=== PATIENT | female | born 1985 | race Caucasian/White ===

== ENCOUNTER → 2017-09-08 | Outpatient (CLI) | payer OTHER ==
[~2017-09-08] MED LIST: AZIT500T3 PO
--- NOTE | 2017-09-08 18:33 | DIAGNOSTIC IMAGING REPORT ---
L LOWER EXT JOINT WITHOUT CLINICAL HISTORY: L KNEE PAIN/SWELLING,GAIT DISTURBANCE pain. Edema. TECHNIQUE: MRI multi axial acquisition COMPARISON STUDY: None FINDINGS: Prior ACL graft repair. Current evaluation demonstrates a full-thickness tear of that structure and is mid aspect. Posterior cruciate ligament is intact. Signal characteristics the osseous structures indicate mild degenerative subchondral edematous change of the medial and lateral compartments. There is moderate degenerative change of the patellofemoral joint. There is no significant/minimal chondromalacia patella. Medial and lateral patellar retinaculum is intact. Medial and lateral collateral ligaments structures are in general unremarkable. There is a moderate sprain of the medial collateral ligament. There may be a very small partial tear. Truncation of the mid medial meniscus as well as mid lateral meniscus. Components of this potentially are on a postoperative basis. There is a focal tear of the apex of the mid lateral meniscus. There is significant irregularity of the mid apex medial meniscus with a horizontal tear of the mid to posterior horn. IMPRESSION: 1. Complete tear of the anterior cruciate ligament graft. 2. Small partial tear medial collateral ligament. 3. Truncation apices of the mid menisci medially and laterally possibly postoperative. 4. Horizontal tear mid to posterior aspect medial meniscus. 5. Focal tear apex mid lateral meniscus. The above report was generated using voice recognition software. It may contain grammatical, syntax or spelling errors. Electronically signed by: Hugh Mcdonald M.D. 09/08/2017 6:31 PM Dictated Date/Time: 09/08/2017 6:26 PM
== END | disposition home or self-care (01) ==
LOC: C.MRI 17:29
PROVIDERS: ATTEND Physician Assistant
DX: S83.512A Sprain of anterior cruciate ligament of left knee, initial encounter (principal); S83.412A Sprain of medial collateral ligament of left knee, initial encounter; S83.242A Other tear of medial meniscus, current injury, left knee, initial encounter; S83.282A Other tear of lateral meniscus, current injury, left knee, initial encounter; X58.XXXA Exposure to other specified factors, initial encounter; T84.89XA Other specified complication of internal orthopedic prosthetic devices, implants and grafts, initial encounter

== ENCOUNTER → 2017-10-14 | Day surgery (SDC) | payer OTHER ==
[2017-09-24 13:26] VITALS: Ht 162.6 cm; Wt 77.3 kg
[~2017-10-14] VITALS: Ht 162.6 cm; Wt 77.3 kg
[~2017-10-14] MED LIST changes: +ACETAMINOPHEN 1000 MG/100 ML IV IV ONE; +ATROPINE SULFATE 0.1 MG/ML 5ML SYR IV PRN; -AZIT500T3 PO; +BUPIVACAINE 0.25% 30 ML VIAL ONE; +CALC600T9 PO; +CEFAZOLIN 1000MG IV PUSH 7.5 ML IV SCH; +CEFAZOLIN SOD 1 GM VIAL ONE; +CEFAZOLIN SOD 1000MG/7.5 ML IV PUSH IV ONE; +DEXAMETHASONE SOD INJ 4 MG/ML VIAL ONE; +EpHEDrine SULFATE INJ 50 MG/ML AMP IV PRN; +EpINEphrine INJ 1MG/ML AMP 1 MG/ML AMP ONE; +FENTANYL CITRATE INJ 50 MCG/1 ML 2 ML VIAL IV PRN; +FENTANYL CITRATE INJ 50 MCG/1 ML 2 ML VIAL ONE; +FLUMAZENIL 0.1 MG/1 ML 10 ML VIAL IV PRN; +GLYCOPYRROLATE INJ 0.2 MG/ML VIAL ONE; +HYDROmorphone INJ 0.5 MG/0.5 ML SYR ONE; +HYDROmorphone INJ 2 MG/ML SYR/VIAL IV PRN; +KETOROLAC TROMETHAMINE 30 MG/ML VIAL ONE; +LABETALOL HCL IV 5 MG/ML 20ML IV PRN; +LACTATED RINGER'S 1000ML 1,000 ML IV SCH; +LIDOCAINE HCL 2% 2 ML VIAL (20MG/ML) ONE; +MEPERIDINE HCL 25 MG/ML CARP IV PRN; +MIDAZOLAM HCL 1 MG/ML 2ML VIAL ONE; +NALOXONE HCL 0.4 MG/1 ML VIAL/CARP IV PRN; +ONDANSETRON INJ 2 MG/ML 2 ML VIAL IV PRN; +ONDANSETRON INJ 2 MG/ML 2 ML VIAL ONE; +OXYC-57 PO; +OXYCODONE/ACETAMINOPHEN 5-325 TAB PO PRN; +PHENYLEPHRINE 100MCG/ML 5ML SYR IV PRN; +PROPOFOL IV EMULSION 10 MG/ML 20 ML VIAL IV ONE; +ROPIVACAINE 0.5% 5 MG/ML 30 ML VIAL ONE; +SODIUM CHLORIDE 0.9% 1000ML 1,000 ML IV SCH
--- NOTE | 2017-10-14 07:46 | History & Physical Bridge - [place] ---
H&P Re-Evaluation Bridge Note: I have examined the patient, reviewed the History & Physical and in the interval since the performance of the History & Physical I have noted the following changes of clinical significance: No changes noted
--- NOTE | 2017-10-14 09:49 | [facility] Post Operative Brief Note ---
Immediate Operative Summary Operative Date Oct 14, 2017. Pre-Operative Diagnosis Left Knee ACL Rupture and DJD Post-Operative Diagnosis Same + Lateral Meniscus Tear Procedure(s) Performed Left Knee Arthroscopy, Anterior Cruciate Ligament Revision with Bone Patella Bone Autograft, Partial Lateral Meniscectomy + Chondroplasty Surgeon Dr. Engel Ethanol Quality Leader Surgeon(s) Fracisco Oliver PA-C Estimated Blood Loss Minimal Findings Consistent with Post-Op Diagnosis Specimens None Anesthesia Type General Regional Disposition Accompanied Pt To Recovery: yes Disposition: Recovery Room / PACU
--- NOTE | 2017-10-14 09:49 | Discharge Instructions-SurgCtr ---
Discharge Instructions Date of Service Oct 14, 2017. Visit Reason for Visit: Left Knee Anterior Cruciate Ligament Rupture Djd Discharge Discharge Diagnosis / Problem: left knee ACL tear,lateral meniscus tear Discharge Goals Goal(s): Decrease discomfort, Improve function, Therapeutic intervention Activity Recommendations Activity Limitations: per Instructions/Follow-up section Weightbearing Status: Left weightbearing (as tolerated with brace ) Anesthesia . Post Anesthesia Instructions: If you have had General Anesthesia or IV Sedation: * Do not drive today. * Resume driving when surgeon permits. * Do not make important decisions or sign legal documents today. * Call surgeon for: 1. Temperature elevations greater than 101 degrees F. 2. Uncontrollable pain. 3. Excessive bleeding. 4. Persistent nausea and vomiting. 5. Medication intolerance (nausea, vomiting or rash). * For nausea and vomiting use only clear liquids such as: tea, soda, bouillon until nausea subsides, then gradually increase diet as tolerated. * If you have any concerns or questions, call your surgeon's office. If physician is unavailable and it is an emergency, call 911 or go to the nearest emergency room. . Instructions / Follow-Up Instructions / Follow-Up MEDICATIONS: * Resume previous medications unless instructed otherwise by your surgeon. * Always take pain medication on a full stomach or with food to avoid upset stomach. * Do not drink alcohol or drive while taking narcotics. * Ibuprofen or Tylenol may be taken if narcotic not needed. SPECIAL CARE INSTRUCTIONS: __ None _x_ Keep extremity elevated and iced x 48 hours; apply ice 20-30 minutes 8-10 times/day. May remove at night. _x_ Crutches __ May discard when able _x_ Brace/Post-op shoe __ 24 hrs/day __ Remove at night _x_ Dressing __ Maintain until seen in office, may shower with plastic over site _x_ Remove dressings in 24-48 hours and then may shower _x_ Cover incisions with band-aids after showering _x_ Do not remove steri-strips Call physician if chills or temperature rises above 102 degrees or pain unrelieved by prescribed pain medications. Office [phone] follow up in 2 weeks Diet Recommendations Home Diet: resume previous diet Procedures Procedures Performed: Left Knee Arthroscopy, Anterior Cruciate Ligament Revision with Bone Patella Bone Autograft, Partial Lateral Meniscectomy Pending Studies Studies pending at discharge: no Medical Emergencies . Who to Call and When: Medical Emergencies: If at any time you feel your situation is an emergency, please call 911 immediately. . Non-Emergent Contact Non-Emergency issues call your: Surgeon . . "Provider Documentation" section prepared by Delfin Oliver. .
[2017-10-14 10:33] VITALS: TEMP 36.6
--- NOTE | 2017-10-14 10:40 | Anesthesia Progress Nt - [facility] ---
Anesthesia Post Op Note Date & Time Oct 14, 2017 at 10:40 Vital Signs Pain Intensity: 4 Vital Signs Past 12 Hours Date Time Temp Pulse Resp B/P (MAP) Pulse Ox O2 Delivery O2 Flow Rate FiO2 10/14/17 10:33 36.6 64 16 120/78 (92) 97 Room Air 10/14/17 10:26 36.4 10/14/17 10:23 54 17 96 10/14/17 10:23 54 17 10/14/17 10:21 108/69 (71) 10/14/17 10:18 60 14 10/14/17 10:18 67 14 100 10/14/17 10:17 Room Air 10/14/17 09:47 36.6 64 16 104/47 98 Diffusion Mask 5 10/14/17 07:42 45 29 100 10/14/17 07:42 47 10/14/17 07:41 100/56 10/14/17 07:37 43 100 10/14/17 07:37 45 10/14/17 07:36 100/55 10/14/17 07:32 54 100 10/14/17 07:32 52 10/14/17 07:31 97/59 10/14/17 07:30 62 14 100 10/14/17 07:30 58 10/14/17 07:26 105/58 10/14/17 07:25 50 100 10/14/17 07:25 50 10/14/17 07:21 105/58 10/14/17 07:20 50 0 100 10/14/17 07:20 52 10/14/17 07:16 106/62 10/14/17 07:15 49 7 100 10/14/17 07:15 55 10/14/17 07:11 104/61 10/14/17 07:10 51 4 100 10/14/17 07:10 53 10/14/17 07:07 110/59 10/14/17 07:05 53 0 99 10/14/17 07:05 51 10/14/17 07:00 48 10/14/17 07:00 49 0 100 10/14/17 06:55 0 10/14/17 06:50 0 10/14/17 06:45 0 10/14/17 06:26 36.5 70 18 105/64 (78) 98 Room Air Notes Mental Status: alert / awake / arousable, participated in evaluation Pt Amnestic to Procedure: Yes Nausea / Vomiting: adequately controlled Pain: adequately controlled Airway Patency, RR, SpO2: stable & adequate BP & HR: stable & adequate Hydration State: stable & adequate Anesthetic Complications: no major complications apparent
[2017-10-14 10:52] VITALS: BP 108/62; O2SAT 100
--- NOTE | 2017-10-15 08:07 | OPERATIVE REPORT ---
DATE OF OPERATION: 10/14/2017 SURGEON: Dr. Fabrizio Engel. SENIOR SALES EXECUTIVE: PETROS Martin. PREOPERATIVE DIAGNOSES: 1. Left recurrent anterior cruciate ligament tear. 2. Left knee degenerative joint disease. POSTOPERATIVE DIAGNOSES: 1. Left recurrent anterior cruciate ligament tear. 2. Left knee degenerative joint disease with grade 2 chondrosis of the patella, focal grade 4 and pretty extensive grade 3 changes of the medial femoral condyle. 3. Degenerative lateral meniscus tear. PROCEDURE PERFORMED: 1. Left knee exam under anesthesia. 2. Left knee diagnostic arthroscopy. 3. Left knee anterior cruciate ligament reconstruction with 9 mm bone patella tendon bone autograft. 4. Left knee partial lateral meniscectomy. 5. Left knee chondroplasty of the medial femoral condyle and patella. OPERATIVE INDICATIONS: The patient is a 31-year-old very active female who is now about 10 years out from her initial ACL reconstruction. She did quite well from that, had a repeat injury just a couple months ago where she hyperextended her knee, felt a pop and had increased pain, discomfort and swelling in her knee. She was seen in clinic and diagnosed with an ACL tear. This was confirmed by MRI. She had a markedly lax knee. She elected to proceed with surgical treatment. Of note, the patient did have a history of this ACL reconstruction 10 years ago and had both portions of her medial and lateral menisci resected at that time. She had some underlying degenerative arthritis in her knee which is well known. OPERATIVE FINDINGS: Examination under anesthesia of the left knee revealed a small knee effusion. Range of motion was 0-135. She had a positive Shahida and grade 3 pivot. Positive anterior drawer, negative posterior drawer. No varus or valgus instability. Krysta was negative for mechanical symptoms. No posterolateral rotatory instability. Arthroscopic exam revealed some grade 2-3 changes of the patella. The trochlea was fairly well preserved. She had a small knee effusion. In the intercondylar notch, the ACL looked to be more chronically torn. The PCL was intact. In the lateral compartment, there was some degenerative tearing of the posterior horn of the lateral meniscus. Some mild age-related changes to the cartilage. In the medial compartment, the meniscus showed some age-related changes but no clear tear. There was pretty significant grade 3 change of the medial femoral condyle with some focal grade 4 areas. OPERATIVE PROCEDURE: The patient taken to the operating room, identified and placed on the operating table in supine position. All contact areas were appropriately padded. IV antibiotics were provided by anesthesia team. An adductor canal block had been provided in the holding area. A left thigh tourniquet was then placed. The left knee was then examined under anesthesia with findings as described above. The left leg was then examined under anesthesia. The left leg was then prepped and draped in usual sterile fashion. Left leg was elevated and exsanguinated with Esmarch and tourniquet was placed at 300 mmHg. A longitudinal incision was made using the previous incision and extended proximally, just medial to the patellar tendon and over the patella. Sharp dissection was carried out through the subcutaneous tissues down to the extensor mechanism. Subcutaneous tissue was mobilized. I then made an incision in paratenon of the patellar tendon and dissected this off the patellar tendon. Patellar tendon width measured about 28 mm in width. A 9 mm bone patella tendon bone autograft was then harvested with about a 20 mm plug from the patella and a 22 mm plug from the tibia. This was then taken to the back table and tailored to fit through 9 mm tunnels. A single #5 suture was placed to the tibial bone block to place in the femur and three #5 sutures were placed in the patellar bone block. This graft was then covered and protected until ready for implantation. During graft preparation, the patellar tendon defect was closed with 0 Vicryl suture in a [id number] fashion. I harvested an 8 x 25 mm bone plug from the proximal tibia and placed in the patella defect. The paratenon was then closed with 0 Vicryl suture in a running fashion. A subperiosteal flap was elevated off the anteromedial aspect of the tibia. Routine left knee arthroscopy was then performed through typical anteromedial and anterolateral portals. A superolateral outflow portal was established for outflow. The remnant of the ACL was excised. The notch had regrown and we did a small to moderate sized notchplasty. With the use of motorized and hand controlled instruments, a partial lateral meniscectomy was performed. I resected the inner rim and the torn portions of the lateral meniscus back to stable tissue. Attention was then drawn to the medial side. With the use of the shaver, the loose cartilage at the end of the medial femoral condyle was debrided back to stable tissue. I then used the shaver to debride some of the loose cartilage on the undersurface of the patella. I then proceed with the ACL reconstruction. With the use of the tibial guide set at 52.5 degrees, a guidewire was placed in the area of the proposed tibial tunnel. The graft length itself measured 46 mm. This was overdrilled with a 9 mm solid reamer. The tunnel was cleaned of all debris. A 7 mm over the top guide was then placed through the anteromedial portal, the knee was maximally flexed. Guidewire was placed in the area of the proposed femoral tunnel. This was overdrilled with a 9 mm acorn reamer for a distance of 30 mm. The tunnel was notched and cleaned of all debris. The 2-pin passer was then placed. A single #5 leading suture was then used to pass the graft through the tibial tunnel up into the femoral tunnel. The graft was then fixed with a 7 x 20 round headed interference screw. The knee was cycled several times. There was no impingement. The knee was brought out into full extension. It was tensioned in full extension and tied over a [employer] tibial plate/screw/post device. Once this was complete, I examined the knee, there was no Shahida and no pivot shift. The graft appeared appropriately tensioned. I placed the scope back in the knee joint. The graft appeared appropriately tensioned in both flexion and extension. I then used the shaver to debride the knee of all extraneous debris. The arthroscopic instruments were then removed from the joint. The anteromedial portal was closed with 0 Vicryl suture. The periosteal flap over the tibial plate was repaired with 0 Vicryl suture in a [id number] fashion. The anterolateral portal was closed with 3-0 Prolene suture. The knee was then injected with 30 mL of 0.5% ropivacaine with epinephrine and 30 mg of Toradol. The tourniquet was then let down for a final tourniquet time of 77 minutes. The wound was once again irrigated. The subcutaneous tissues were then closed with 2-0 Dexon suture in a buried interrupted fashion. Skin was closed with 3-0 Prolene suture in a subcuticular fashion. The leg was then cleaned and dried, and a sterile dressing composed of Steri-Strips, Xeroform, 4 x 4's, sterile cast padding, Tyrell bandage, cold pack and knee immobilizer were applied. The patient then brought out of general anesthesia and transferred to the recovery room in stable condition. The patient tolerated the procedure well with no complications. All needle and sponge counts were correct at the end of the operation. I attest to the content of the Intraoperative Record and any orders documented therein. Any exception s are noted below.
== END | disposition home or self-care (01) ==
LOC: X.SURG 06:10
PROVIDERS: ATTEND Orthopaedic Surgery Sports Medicine
DX: M23.252 Derangement of posterior horn of lateral meniscus due to old tear or injury, left knee (principal); M23.52 Chronic instability of knee, left knee; J45.909 Unspecified asthma, uncomplicated; K21.9 Gastro-esophageal reflux disease without esophagitis; Z88.8 Allergy status to other drugs, medicaments and biological substances; Z90.49 Acquired absence of other specified parts of digestive tract